=== PATIENT | female | born 1995 | race Caucasian/White ===

== ENCOUNTER 2016-07-06 05:56 | Emergency (ER) | payer BC ==
[2016-07-06] MEDS ORDERED: HYDROCODONE/ACETAMINOPHEN 5-325 MG TABLET PO ONE (07:46)
[2016-07-06] MEDS ORDERED: ONDANSETRON 4 MG TAB.RAPDIS PO ONE (07:46)
[2016-07-06] MEDS ORDERED: LIDOCAINE 5% (700 MG) TRANSDERMAL ADH..PATCH TP ONE (07:47)
--- NOTE | 2016-07-06 08:48 | ER Document Report ---
HPI - HPI Patient complains to provider of: fall Onset: Yesterday Onset/Duration: Sudden Quality of pain: Sharp Pain Level: 5 Context: Patient states she has a history of opsoclonus myoclonus and has a history of frequent falls. Patient states that she was getting up from a chair yesterday and fell landing on her right side on the floor. Patient states that she additionally has had some nausea, vomiting and diarrhea. Patient reports vomiting 8 times today and having diarrhea only once today. Patient states that typically with her opsoclonus myoclonus she will frequently have chronic pain and will become nauseated from her pain. Patient is visiting here from out of town but has her medications with her. Patient denies any difficulty breathing, chest pain, or abdominal pain. Patient reports right lateral rib pain that goes to her upper back area. Patient denies any head injury or loss of consciousness. Associated Symptoms: Hurts to breath, Other - Right rib tenderness. denies: Nonproductive cough, Productive cough, Fever, Shortness of breath Exacerbated by: Movement, Deep breathing Relieved by: Remaining still Similar symptoms previously: Yes - frequent falls Recently seen / treated by doctor: No - ROS ROS below otherwise negative: Yes Systems Reviewed and Negative: Yes All other systems reviewed and negative - CONSTITUTIONAL Constitutional: DENIES: Fever, Chills - EENT EENT: DENIES: Sore Throat, Ear Pain - NEURO Neurology: DENIES: Headache, Weakness - CARDIOVASCULAR Cardiovascular: REPORTS: Chest pain - Right lateral rib tendern - RESPIRATORY Respiratory: DENIES: Trouble Breathing, Coughing Notes: Pain with deep inspiration - GASTROINTESTINAL Gastrointestinal: REPORTS: Nausea, Patient vomiting, Diarrhea. DENIES: Abdominal Pain, Constipation, Black / Bloody Stools - URINARY Urinary: DENIES: Dysuria - REPRODUCTIVE LMP: 06-19-16 - MUSCULOSKELETAL Musculoskeletal: REPORTS: Back Pain - Right thoracic back. DENIES: Extremity pain, Neck Pain - DERM Skin Color: Normal Skin Problems: None Past Medical History - General Information source: Patient - Social History Smoking Status: Never Smoker Chew tobacco use (# tins/day): No Frequency of alcohol use: None Drug Abuse: None Occupation: none Lives with: Family Family History: Reviewed & Not Pertinent Patient has suicidal ideation: No Patient has homicidal ideation: No - Medical History Medical History: Other - Opsoclonus myoclonus Renal/ Medical History: Reports: Hx Ovarian Cysts - PCO S. Denies: Hx Peritoneal Dialysis Past Surgical History: Reports: Hx Cholecystectomy, Hx Oral Surgery, Other - Port-A-Cath placement - Immunizations Hx Diphtheria, Pertussis, Tetanus Vaccination: Yes Vertical Provider Document - CONSTITUTIONAL Agree With Documented VS: Yes General Appearance: No Apparent Distress - INFECTION CONTROL TRAVEL OUTSIDE OF THE [place] IN LAST 30 DAYS: No - HEENT HEENT: Atraumatic, Normal ENT Exam, Normocephalic - NECK Neck: Normal Inspection, Supple. negative: Lymphadenopathy-Left, Lymphadenopathy-Right - RESPIRATORY Respiratory: Breath Sounds Normal, No Respiratory Distress. negative: Chest Non -Tender - Right lateral rib tenderness no ecchymosis, no subcutaneous emphysema , no external evidence of obvious injury, Rales, Rhonchi, Wheezing O2 Sat by Pulse Oximetry: 95 - CARDIOVASCULAR Cardiovascular: Regular Rate, Regular Rhythm, No Murmur - GI/ABDOMEN Gastrointestinal: Abdomen Soft, Abdomen Non-Tender, No Organomegaly - BACK Back: Abnormal Inspection - Right thoracic posterior rib tenderness with palpation, no ecchymosis, no deformity,PTs emphysema. negative: CVA Tenderness- Right, CVA Tenderness-Left - MUSCULOSKELETAL/EXTREMETIES Musculoskeletal/Extremeties: MAEW, FROM, Non-Tender - NEURO Level of Consciousness: Awake, Alert Motor/Sensory: No Motor Deficit - DERM Integumentary: Warm, Dry, No Rash Course - Re-evaluation Re-evalutation: 07/06/16 08:[address] abdi regarding patient's presentation. Recommends treating with short course of a few pain pills as well as topical lidocaine patch. No additional testing recommended at this time. - Vital Signs Vital signs: Temp Pulse Resp BP Pulse Ox 98.2 F 103 H 20 131/80 H 95 07/06/16 06:16 07/06/16 06:16 07/06/16 06:16 07/06/16 06:16 07/06/16 06:16 - Diagnostic Test Radiology reviewed: Image reviewed, Reports reviewed Discharge - Discharge Clinical Impression: Chest wall pain Fall Qualifiers: Encounter type: initial encounter Qualified Code(s): W19.XXXA - Unspecified fall, initial encounter Condition: Stable Disposition: HOME, SELF-CARE Instructions: Chest Wall Pain ([facility]), Oral Narcotic Medication ([facility]), Warm Packs ([facility]), Ice Packs ([facility]) Additional Instructions: Return immediately for any new or worsening symptoms Followup with your primary care provider, call tomorrow to make a followup appointment Take your pain medications that you have at home as prescribed You can use lidocaine patches [id number] topically to the affected area, use as directed. (example dulce cazares) Prescriptions: Hydrocodone/Acetaminophen [[place] 5-325 Tablet] 1 each PO Q4 PRN #8 tablet PRN Reason: Referrals: [facility] [Provider Group] - Follow up as needed
[2016-07-06 09:06] VITALS: BP 125/63
== END 2016-07-06 09:07 | disposition home or self-care (01) ==
LOC: ER 05:56
DX: R07.89 Other chest pain (principal); W07.XXXA Fall from chair, initial encounter; Y93.89 Activity, other specified; R11.2 Nausea with vomiting, unspecified; R19.7 Diarrhea, unspecified; G25.3 Myoclonus; R07.1 Chest pain on breathing; M54.6 Pain in thoracic spine
CPT/HCPCS: 99284; 71101; S0119

== ENCOUNTER 2017-01-25 09:50 | Emergency (ER) | payer BC ==
--- NOTE | 2017-01-25 09:55 | ER Document Report ---
ED General - General Stated Complaint: POSSIBLE SEIZURE Time Seen by Provider: 01/25/17 09:54 Mode of Arrival: Medic Information source: Patient - with texting, non verbal Notes: 21 yo female visting from [facility], supposed to go home today, with Opsoclonus-Myoclonus Syndrome (non verbal) but texts to communicate, PCOS, came in by EMS after the following this am: woke up this am nauseated with dizzines/ vertigo at 0730. walked to go to eat eggs and jung at the hotel. On way back to room alone, couldn't feel legs, fell on the ground and had tremors. Believes she had LOC, and now has neck and whole back pain with headache. EMS checked her out and said she was OK but she is having this pain and some shaking. She feels like she has a concussion, she falls a lot. She has been feeling like she has the flu with cough, runny nose, aches for a few days. I Witnessed stiff altered ataxia when walked back to room from the bathroom. 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 TRAVEL OUTSIDE OF THE [place] IN LAST 30 DAYS: No - Related Data Allergies/Adverse Reactions: azithromycin Allergy (Verified 07/06/16 06:22) sertraline [From Zoloft] Allergy (Verified 07/06/16 06:22) Sulfa (Sulfonamide Antibiotics) Allergy (Verified 07/06/16 06:22) Home Medications: Current Home Medications Azathioprine 50 mg PO BID 01/25/17 [History] Bupropion HCl 100 mg PO BID 01/25/17 [History] Clonazepam 2 mg PO TID 01/25/17 [History] Diphenhydramine HCl 25 mg PO DAILY 01/25/17 [History] Docusate Sodium 100 mg PO DAILY 01/25/17 [History] Hydrochlorothiazide 25 mg PO PRN PRN 01/25/17 [History] Hydroxyzine HCl 25 mg PO PRN PRN 01/25/17 [History] Metformin HCl 1,000 mg PO BID 01/25/17 [History] Metoprolol [place]/Hydrochlorothiaz [Metoprolol ER-Hctz 25-12.5 mg] 1 each PO DAILY 01/25/17 [History] Ondansetron [Zofran Odt 4 mg Tablet] 4 mg PO TID 01/25/17 [History] Pregabalin [Lyrica] 300 mg PO BID 01/25/17 [History] Prochlorperazine Maleate 10 mg PO TID 01/25/17 [History] Sucralfate [Carafate 1 gm Tablet] 1 gm PO ACHS 01/25/17 [History] Tapentadol HCl [Nucynta] 50 mg PO Q6 01/25/17 [History] Tizanidine HCl 4 mg PO TID 01/25/17 [History] Past Medical History - General Information source: Patient, Parent - mom there for 3/4 of the visit - Social History Smoking Status: Never Smoker Frequency of alcohol use: None Drug Abuse: None Lives with: Parents - mom Family History: Reviewed & Not Pertinent - Medical History Notes: see above Renal/ Medical History: Reports: Hx Ovarian Cysts - PCO S. Denies: Hx Peritoneal Dialysis Other: see above Past Surgical History: Reports: Hx Cholecystectomy, Hx Oral Surgery, Other - Port-A-Cath placement - Immunizations Hx Diphtheria, Pertussis, Tetanus Vaccination: Yes Review of Systems - Review of Systems Constitutional: No symptoms reported EENT: No symptoms reported Cardiovascular: No symptoms reported Respiratory: No symptoms reported Gastrointestinal: No symptoms reported Genitourinary: No symptoms reported Female Genitourinary: No symptoms reported Musculoskeletal: No symptoms reported, See HPI Skin: No symptoms reported Hematologic/Lymphatic: No symptoms reported Neurological/Psychological: See HPI Physical Exam - Vital signs Vitals: Resp 22 H 01/25/17 09:55 Interpretation: Normal - Notes Notes: morbidly obese - General General appearance: Appears well, Alert, Anxious, Other - texting to communicate - HEENT Head: Normocephalic, Atraumatic Eyes: Normal Conjunctiva: Normal Pupils: PERRL Pharynx: Normal Neck: Supple - Respiratory Respiratory status: No respiratory distress Chest status: Nontender Breath sounds: Normal Chest palpation: Normal - Cardiovascular Rhythm: Regular Heart sounds: Normal auscultation Murmur: No - Abdominal Inspection: Normal Distension: No distension Bowel sounds: Normal Tenderness: Nontender Organomegaly: No organomegaly - Back Back: Normal, Nontender - Extremities General upper extremity: Normal inspection, Nontender, Normal color, Normal ROM , Normal temperature General lower extremity: Normal inspection, Nontender, Normal color, Normal ROM , Normal temperature, Normal weight bearing. No: Daina's sign - Neurological Neuro grossly intact: Yes Cognition: Normal Orientation: AAOx4 [place] Coma Scale Eye Opening: Spontaneous [place] Coma Scale Verbal: Oriented [place] Coma Scale Motor: Obeys Commands [place] Coma Scale Total: 15 Speech: Normal - 1/2 way through the visit Cerebellar coordination: Gait ataxia - on way back fromt bathroom Motor strength normal: LUE, RUE, LLE, RLE Sensory: Normal - Psychological Associated symptoms: Agitated, Anxious - Skin Skin Temperature: Warm Skin Moisture: Dry Skin Color: Normal Course - Re-evaluation Re-evalutation: 01/25/17 14:03 pulse to 90, talking normally now. She is very thankful that I believed her condition was real. Work up negative for infection, CT's xray negative. - Vital Signs Vital signs: Temp Pulse Resp BP Pulse Ox 98.3 F 111 H 20 133/91 H 99 01/25/17 10:00 01/25/17 14:32 01/25/17 14:32 01/25/17 14:32 01/25/17 14:32 - Laboratory Result Diagrams: 01/25/17 11:32 01/25/17 11:32 Laboratory results interpreted by me: 01/25/17 01/25/17 01/25/17 10:30 11:32 11:32 Hgb 11.6 L Hct 33.8 L RDW 18.3 H Sodium 146.2 H Carbon Dioxide 31 H BUN 4 L Glucose 126 H POC Glucose Albumin 3.4 L Ur Leukocyte Esterase SMALL H 01/25/17 12:12 Hgb Hct RDW Sodium Carbon Dioxide BUN Glucose POC Glucose 120 H Albumin Ur Leukocyte Esterase - EKG Interpretation by [place] EKG shows normal: Sinus rhythm Rate: Tachycardia - 110 Additional EKG results interpreted by me: 01/25/17 14:04 dr conroy read ekg Discharge - Discharge Clinical Impression: Vertigo, neck and back pain after fall, possible syncope, resolved ataxia, Opsoclonus-myoclonus syndrome Vomiting Qualifiers: Vomiting type: unspecified Vomiting Intractability: non-intractable Nausea presence: with nausea Qualified Code(s): R11.2 - Nausea with vomiting, unspecified Condition: Good Disposition: HOME, SELF-CARE Instructions: Antinausea Medication ([facility]), Chronic Back Pain ([facility]), Intravenous (IV) Fluids ([facility]), Neck Injury (Cervical Strain) ([facility]), Vomiting ( [facility]) Additional Instructions: see your doctor and neurologist when you get home to er if worse Please complete the patient satisfaction survey if you get one, and return it.. If you do not receive a survey, then you can go to the [facility] website, [email or web address] and place your comments about your very good care. Thank you very much. It was a pleasure being your medical provider today. Prescriptions: Methylprednisolone [Medrol Dosepack (4 mg/Tab) 21 Tab/Dosepak] 4 mg PO ASDIR PRN #21 [email or web address] PRN Reason:
[2017-01-25] MEDS ORDERED: ONDANSETRON 4 MG TAB.RAPDIS PO ONE (10:07)
[2017-01-25] MEDS ORDERED: LORAZEPAM 1 MG TABLET PO ONE (10:10)
[2017-01-25] MEDS ORDERED: NORMAL SALINE 1000 ML 1,000 ML IV ONE (10:25)
[2017-01-25] MEDS ORDERED: DEXAMETHASONE SOD PHOS INJ 10 MG/1 ML VIAL IV ONE (10:47)
[2017-01-25 10:52] LABS: APPEARANCE,URINE SLIGHTLY-CLOUDY; BILIRUBIN,URINE NEGATIVE (NEGATIVE); GLUCOSE, URINE NEGATIVE (NEGATIVE); KETONES,URINE NEGATIVE (NEGATIVE); LEUKOCYTE ESTERASE,URINE SMALL (NEGATIVE); NITRITE,URINE NEGATIVE (NEGATIVE); PROTEIN,URINE NEGATIVE (NEGATIVE); URINE SPECIFIC GRAVITY 1.004; UROBILINOGEN,URINE NEGATIVE mg/dL (<2.0)
[2017-01-25] MEDS ORDERED: NORFLURANE/PENTAFLUOROPROPANE 30 ML SPRAY TP ONE (11:11)
--- NOTE | 2017-01-25 11:12 | RADIOLOGY REPORT (SQ) ---
EXAM DESCRIPTION: CT HEAD WITHOUT COMPLETED DATE/TIME: 01/25/2017 10:45 am REASON FOR STUDY: fall COMPARISON: None. TECHNIQUE: Axial images acquired through the brain without intravenous contrast. Images reviewed wi th bone, brain and subdural windows. Images stored on PACS. All CT scanners at this facility use dose modulation, iterative reconstruction, and/or weight based d osing when appropriate to reduce radiation dose to as low as reasonably achievable (ALARA). [facility]: Dose Right [facility]: CareDose [facility]: Dose Right [facility]: Teradose 4D [facility]: [facility] RADIATION DOSE: Up-to-date CT equipment and radiation dose reduction techniques were employed. CTDIv ol: 64.6 mGy. DLP: 1034 mGy-cm. mGy. LIMITATIONS: None. FINDINGS: VENTRICLES: Normal size and contour. CEREBRUM: No masses. No hemorrhage. No midline shift. No evidence for acute infarction. Normal gra y/white matter differentiation. No areas of low density in the white matter. CEREBELLUM: No masses. No hemorrhage. No alteration of density. No evidence for acute infarction. EXTRAAXIAL SPACES: No fluid collections. No masses. ORBITS AND GLOBE: No intra- or extraconal masses. Normal contour of globe without masses. CALVARIUM: No fracture. PARANASAL SINUSES: No fluid or mucosal thickening. SOFT TISSUES: No mass or hematoma. OTHER: No other significant finding. IMPRESSION: NORMAL BRAIN CT WITHOUT CONTRAST. EVIDENCE OF ACUTE STROKE: NO. COMMENT: Quality ID # [id number]: Final reports with documentation of one or more dose reduction techniques (e.g., Automated exposure control, adjustment of the mA and/or kV according to patient size, use of iterative reconstruction technique) TECHNICAL DOCUMENTATION: JOB ID: [id number] [employer]- All Rights Reserved
--- NOTE | 2017-01-25 11:14 | RADIOLOGY REPORT (SQ) ---
EXAM DESCRIPTION: CT CERVICAL SPINE WITHOUT COMPLETED DATE/TIME: 01/25/2017 10:48 am REASON FOR STUDY: fall COMPARISON: None. TECHNIQUE: Axial images acquired through the cervical spine without intravenous contrast. Images re viewed with lung, soft tissue and bone windows. Reconstructed coronal and sagittal MPR images review ed. Images stored on PACS. All CT scanners at this facility use dose modulation, iterative reconstruction, and/or weight based d osing when appropriate to reduce radiation dose to as low as reasonably achievable (ALARA). [facility]: Dose Right [facility]: CareDose [facility]: Dose Right [facility]: Teradose 4D [facility]: [employer] RADIATION DOSE: Up-to-date CT equipment and radiation dose reduction techniques were employed. CTDIv ol: 28.5 mGy. DLP: 555 mGy-cm. mGy. LIMITATIONS: Beam hardening artifact from large patient FINDINGS: ALIGNMENT: Anatomic. MINERALIZATION: Normal. VERTEBRAL BODIES: No fractures or dislocation. DISCS: No significant disc disease. FACETS, LATERAL MASSES, POSTERIOR ELEMENTS: No fractures. No dislocation. No acute findings. HARDWARE: None in the spine. VISUALIZED RIBS: No fractures. LUNG APICES AND SOFT TISSUES: No significant or acute findings. OTHER: No other significant finding. IMPRESSION: NO ACUTE OR SIGNIFICANT FINDINGS IN THE CERVICAL SPINE. TECHNICAL DOCUMENTATION: JOB ID: [id number] Quality ID # [id number]: Final reports with documentation of one or more dose reduction techniques (e.g., Au tomated exposure control, adjustment of the mA and/or kV according to patient size, use of iterative reconstruction technique) 2010 [employer]- All Rights Reserved
--- NOTE | 2017-01-25 11:15 | RADIOLOGY REPORT (SQ) ---
EXAM DESCRIPTION: CHEST PA/LAT COMPLETED DATE/TIME: 01/25/2017 10:57 am REASON FOR STUDY: fall COMPARISON: PA chest and right rib films 07/06/2016 EXAM PARAMETERS: NUMBER OF VIEWS: two views TECHNIQUE: Digital Frontal and Lateral radiographic views of the chest acquired. RADIATION DOSE: NA LIMITATIONS: none FINDINGS: LUNGS AND PLEURA: No opacities, masses or pneumothorax. No pleural effusion. MEDIASTINUM AND HILAR STRUCTURES: No masses or contour abnormalities. HEART AND VASCULAR STRUCTURES: Heart normal size. No evidence for failure. BONES: No acute findings. HARDWARE: Right permanent central line tip superior vena cava. Clips right upper quadrant post calixto cystectomy. Electrode leads over the mid epigastric region. OTHER: No other significant finding. IMPRESSION: No acute findings TECHNICAL DOCUMENTATION: JOB ID: [id number] [employer]- All Rights Reserved
[2017-01-25] MEDS ORDERED: MORPHINE SULFATE 10 MG/ML INJ IV ONE ×2 (11:34→13:45)
[2017-01-25 11:48] LABS: ABSOLUTE BASOPHILS # (AUTO) 0.1 10^3/uL (0.0-0.2); ABSOLUTE EOSINOPHILS # (AUTO) 0.1 10^3/uL (0.0-0.6); ABSOLUTE MONOCYTES (AUTO) 0.5 10^3/uL (0.1-1.4); ABSOLUTE NEUT (AUTO) 5.2 10^3/uL (1.7-8.2); BASOPHILS % (AUTO) 0.8 % (0-2); EOSINOPHILS % (AUTO) 1.9 % (0-6); HEMATOCRIT 33.8 % (36.0-47.0); HEMOGLOBIN 11.6 g/dL (12.0-15.5); LYMPHOCYTES % (AUTO) 15.1 % (13-45); MEAN CORPUSCULAR HEMOGLOBIN 28.2 pg (27.0-33.4); MEAN CORPUSCULAR HGB CONC 34.4 g/dL (32.0-36.0); MEAN CORPUSCULAR VOLUME 82 fl (80-97); MONOCYTES % (AUTO) 7.6 % (3-13); RED BLOOD COUNT 4.12 10^6/uL (3.72-5.28); RED CELL DISTRIBUTION WIDTH 18.3 % (11.5-14.0); SEGMENTED NEUTROPHILS % (AUTO) 74.6 % (42-78); WHITE BLOOD COUNT 6.9 10^3/uL (4.0-10.5)
[2017-01-25 12:06] LABS: ALANINE AMINOTRANSFERASE 41 U/L (9-52); ALBUMIN 3.4 g/dL (3.5-5.0); ALKALINE PHOSPHATASE 69 U/L (38-126); ANION GAP 8 (5-19); ASPARTATE AMINO TRANSFERASE 36 U/L (14-36); BILIRUBIN,DIRECT 0.3 mg/dL (0.0-0.4); BILIRUBIN,TOTAL 0.3 mg/dL (0.2-1.3); BLOOD UREA NITROGEN 4 mg/dL (7-20); CALCIUM 9.5 mg/dL (8.4-10.2); CARBON DIOXIDE 31 mmol/L (22-30); CHLORIDE 107 mmol/L (98-107); CREATININE RESULT 0.68 mg/dL (0.52-1.25); GLUCOSE 126 mg/dL (75-110); POTASSIUM 4.4 mmol/L (3.6-5.0); SODIUM 146.2 mmol/L (137-145); TOTAL PROTEIN 6.9 g/dL (6.3-8.2)
[2017-01-25 14:14] VITALS: BP 133/91
--- NOTE | 2017-01-25 14:53 | EKG REPORT ---
SEVERITY:- ABNORMAL ECG - SINUS TACHYCARDIA NONSPECIFIC T ABNORMALITIES, ANTERIOR LEADS BORDERLINE PROLONGED QT INTERVAL : Confirmed by: Nate Chapa MD 25-Jan-2017 14:52:09
== END 2017-01-25 15:04 | disposition home or self-care (01) ==
LOC: ER 09:50
DX: G25.3 Myoclonus (principal); M54.2 Cervicalgia; M54.9 Dorsalgia, unspecified; R11.2 Nausea with vomiting, unspecified; R42 Dizziness and giddiness; R05 Cough; R09.89 Other specified symptoms and signs involving the circulatory and respiratory systems; W19.XXXA Unspecified fall, initial encounter; Z79.899 Other long term (current) drug therapy
CPT/HCPCS: 93005; 96376; 99284; 96361; 96374; 96375; 36415; 87086; 82962; 84703; 85025; 80053; 81001; 87804; 71020; 70450; 72125; 93010; J2270; J7030; J1100; J3490